=== PATIENT | female | born 1950 | race Two or more races ===

== ENCOUNTER 2017-12-06 10:31 | Outpatient (CLI) | payer OTHER ==
[~2017-12-06 10:31] MED LIST: CATAFLAM50 MG PO; GLIPIZIDE10 MG PO; JANUMET XR 1001 EACH; NEURONTIN250 MG/5 M PO; VYTORIN 10-20 M1 TAB PO
== END 2017-12-06 10:39 | disposition home or self-care (01) ==
LOC: LAB 10:31
DX: I10 Essential (primary) hypertension (principal); E11.8 Type 2 diabetes mellitus with unspecified complications; E03.8 Other specified hypothyroidism; E78.2 Mixed hyperlipidemia

== ENCOUNTER 2018-03-24 09:08 | Outpatient (CLI) | payer OTHER | END 2018-03-24 11:00 | disposition home or self-care (01) | LOC: LAB 09:08 | DX: I10 Essential (primary) hypertension (principal); E11.9 Type 2 diabetes mellitus without complications; E03.8 Other specified hypothyroidism; E78.2 Mixed hyperlipidemia ==

== ENCOUNTER 2018-04-05 10:55 | Outpatient (CLI) | payer OTHER | END 2018-04-05 14:52 | disposition home or self-care (01) | LOC: RAD 10:55 → SONOGRAMA 10:55 → RAD 14:52 | DX: M12.872 Other specific arthropathies, not elsewhere classified, left ankle and foot (principal); M19.072 Primary osteoarthritis, left ankle and foot ==

== ENCOUNTER 2018-07-15 09:23 | Outpatient (CLI) | payer OTHER | END 2018-07-15 09:30 | disposition home or self-care (01) | LOC: LAB 09:23 | DX: I10 Essential (primary) hypertension (principal); E11.9 Type 2 diabetes mellitus without complications; E03.8 Other specified hypothyroidism; E78.2 Mixed hyperlipidemia ==

== ENCOUNTER 2018-09-07 09:32 | Outpatient (CLI) | payer OTHER | END 2018-09-07 09:38 | disposition home or self-care (01) | LOC: LAB 09:32 | DX: E11.65 Type 2 diabetes mellitus with hyperglycemia (principal); E03.8 Other specified hypothyroidism; I10 Essential (primary) hypertension; E78.2 Mixed hyperlipidemia ==

== ENCOUNTER → 2018-10-14 | Outpatient (CLI) | payer OTHER | END | disposition home or self-care (01) | LOC: NUCLEAR 12:41 | DX: M81.0 Age-related osteoporosis without current pathological fracture (principal) ==

== ENCOUNTER 2018-11-04 08:48 | Outpatient (CLI) | payer OTHER | END 2018-11-04 15:00 | disposition home or self-care (01) | LOC: LAB 08:48 | DX: I10 Essential (primary) hypertension (principal); E11.9 Type 2 diabetes mellitus without complications; E03.8 Other specified hypothyroidism; E78.2 Mixed hyperlipidemia; K92.1 Melena; D64.89 Other specified anemias ==

== ENCOUNTER 2019-01-06 08:17 | Outpatient (CLI) | payer OTHER | END 2019-01-06 15:51 | disposition home or self-care (01) | LOC: MRI 08:17 | DX: M25.572 Pain in left ankle and joints of left foot (principal) | CPT/HCPCS: 73721 ==

== ENCOUNTER 2019-02-16 09:02 | Outpatient (CLI) | payer OTHER | END 2019-02-16 10:42 | disposition home or self-care (01) | LOC: LAB 09:02 | DX: E03.8 Other specified hypothyroidism (principal); E11.9 Type 2 diabetes mellitus without complications; E78.2 Mixed hyperlipidemia; Z12.11 Encounter for screening for malignant neoplasm of colon; I10 Essential (primary) hypertension ==

== ENCOUNTER 2019-03-06 08:04 | Outpatient (CLI) | payer OTHER | END 2019-03-06 08:32 | disposition home or self-care (01) | LOC: LAB 08:04 | DX: D64.89 Other specified anemias (principal); E88.89 Other specified metabolic disorders; D68.8 Other specified coagulation defects; N39.0 Urinary tract infection, site not specified; Z22.322 Carrier or suspected carrier of Methicillin resistant Staphylococcus aureus; Z76.89 Persons encountering health services in other specified circumstances; I49.8 Other specified cardiac arrhythmias ==

== ENCOUNTER 2019-03-13 09:54 | Outpatient (CLI) | payer OTHER | END 2019-03-13 09:56 | disposition home or self-care (01) | LOC: SONOGRAMA 09:54 | DX: C50.411 Malignant neoplasm of upper-outer quadrant of right female breast (principal); C50.612 Malignant neoplasm of axillary tail of left female breast; C50.412 Malignant neoplasm of upper-outer quadrant of left female breast; Z16.39 Resistance to other specified antimicrobial drug ==

== ENCOUNTER 2019-03-13 11:02 | Outpatient (CLI) | payer OTHER | END 2019-03-13 11:09 | disposition home or self-care (01) | LOC: LAB 11:02 | DX: C50.411 Malignant neoplasm of upper-outer quadrant of right female breast (principal); C50.612 Malignant neoplasm of axillary tail of left female breast; C50.412 Malignant neoplasm of upper-outer quadrant of left female breast ==

== ENCOUNTER 2019-04-17 08:03 | Outpatient (CLI) | payer OTHER | END 2019-04-17 08:13 | disposition home or self-care (01) | LOC: LAB 08:03 | DX: I49.8 Other specified cardiac arrhythmias (principal); Z76.89 Persons encountering health services in other specified circumstances; D64.89 Other specified anemias; E88.89 Other specified metabolic disorders; D68.8 Other specified coagulation defects; N39.0 Urinary tract infection, site not specified; Z22.322 Carrier or suspected carrier of Methicillin resistant Staphylococcus aureus ==

== ENCOUNTER 2019-05-08 05:15 | Day surgery (SDC) | payer OTHER ==
[~2019-05-08 05:15] MED LIST changes: +JANUMET XR 1001 EACH PO; -NEURONTIN250 MG/5 M PO; +NEURONTIN600 MG PO; +SIMVASTATIN40 MG PO; -VYTORIN 10-20 M1 TAB PO
== END 2019-05-08 14:20 | disposition home or self-care (01) ==
LOC: CIR.AMB 05:15
DX: M76.62 Achilles tendinitis, left leg (principal)

== ENCOUNTER → 2019-06-02 08:07 | Outpatient (CLI) | payer OTHER | END | disposition home or self-care (01) | LOC: LAB 08:07 | DX: I10 Essential (primary) hypertension (principal); E11.9 Type 2 diabetes mellitus without complications; E03.8 Other specified hypothyroidism; E78.2 Mixed hyperlipidemia ==

== ENCOUNTER → 2019-10-12 08:22 | Outpatient (CLI) | payer OTHER | END | disposition home or self-care (01) | LOC: LAB 08:22 | DX: E11.9 Type 2 diabetes mellitus without complications (principal); E03.8 Other specified hypothyroidism; E78.2 Mixed hyperlipidemia; I10 Essential (primary) hypertension ==

== ENCOUNTER 2020-03-21 08:18 | Outpatient (CLI) | payer OTHER | END 2020-03-21 08:22 | disposition home or self-care (01) | LOC: LAB 08:18 | PROVIDERS: ATTEND Internal Medicine Cardiovascular Disease | DX: E03.8 Other specified hypothyroidism (principal); I10 Essential (primary) hypertension; E78.2 Mixed hyperlipidemia; Z12.11 Encounter for screening for malignant neoplasm of colon; E11.9 Type 2 diabetes mellitus without complications ==

== ENCOUNTER → 2020-03-21 | Outpatient (CLI) | payer OTHER | END | disposition home or self-care (01) | LOC: RAD 09:06 | PROVIDERS: ATTEND Physical Medicine & Rehabilitation | DX: M54.6 Pain in thoracic spine (principal); M54.5 Low back pain ==

== ENCOUNTER 2020-03-26 08:09 | Outpatient (CLI) | payer OTHER | END 2020-03-26 08:13 | disposition home or self-care (01) | LOC: LAB 08:09 | PROVIDERS: ATTEND Internal Medicine Cardiovascular Disease | DX: I10 Essential (primary) hypertension (principal); E11.9 Type 2 diabetes mellitus without complications; E03.8 Other specified hypothyroidism; E78.2 Mixed hyperlipidemia; Z12.11 Encounter for screening for malignant neoplasm of colon ==

== ENCOUNTER → 2020-09-17 | Outpatient (CLI) | payer OTHER | END | disposition home or self-care (01) | LOC: RAD 09:12 | PROVIDERS: ATTEND Orthopaedic Surgery | DX: M76.52 Patellar tendinitis, left knee (principal); N20.1 Calculus of ureter ==

== ENCOUNTER 2020-10-18 08:52 | Outpatient (CLI) | payer OTHER | END 2020-10-18 09:12 | disposition home or self-care (01) | LOC: RAD 08:52 → MRI 09:15 | PROVIDERS: ATTEND Orthopaedic Surgery | DX: M17.11 Unilateral primary osteoarthritis, right knee (principal); M71.21 Synovial cyst of popliteal space [Baker], right knee | CPT/HCPCS: 73721 ==

== ENCOUNTER 2022-03-04 10:04 | Outpatient (CLI) | payer OTHER | END 2022-03-04 10:08 | disposition home or self-care (01) | LOC: LAB 10:04 | PROVIDERS: ATTEND Internal Medicine Hematology & Oncology | DX: D64.9 Anemia, unspecified (principal); C50.412 Malignant neoplasm of upper-outer quadrant of left female breast; R74.01 Elevation of levels of liver transaminase levels ==

== ENCOUNTER 2022-03-06 14:15 | Outpatient (CLI) | payer OTHER | END 2022-03-06 14:19 | disposition home or self-care (01) | LOC: SONOGRAMA 14:15 | PROVIDERS: ATTEND Internal Medicine Hematology & Oncology | DX: C50.412 Malignant neoplasm of upper-outer quadrant of left female breast (principal); C50.411 Malignant neoplasm of upper-outer quadrant of right female breast; Z85.3 Personal history of malignant neoplasm of breast; Z80.3 Family history of malignant neoplasm of breast; Z12.31 Encounter for screening mammogram for malignant neoplasm of breast ==

== ENCOUNTER 2022-11-30 09:33 | Outpatient (CLI) | payer OTHER | END 2022-11-30 09:35 | disposition home or self-care (01) | LOC: RAD 09:33 | PROVIDERS: ATTEND Internal Medicine Cardiovascular Disease | DX: M12.9 Arthropathy, unspecified (principal); M46.48 Discitis, unspecified, sacral and sacrococcygeal region ==

== ENCOUNTER → 2023-02-22 09:41 | Outpatient (CLI) | payer OTHER | END | disposition home or self-care (01) | LOC: LAB 09:41 | PROVIDERS: ATTEND Internal Medicine Hematology & Oncology | DX: D64.9 Anemia, unspecified (principal); E11.9 Type 2 diabetes mellitus without complications; I10 Essential (primary) hypertension; C50.412 Malignant neoplasm of upper-outer quadrant of left female breast; C50.411 Malignant neoplasm of upper-outer quadrant of right female breast; E78.5 Hyperlipidemia, unspecified ==

== ENCOUNTER 2023-02-22 10:56 | Outpatient (CLI) | payer OTHER | END 2023-02-22 11:00 | disposition home or self-care (01) | LOC: SONOGRAMA 10:56 | PROVIDERS: ATTEND Internal Medicine Hematology & Oncology | DX: Z12.31 Encounter for screening mammogram for malignant neoplasm of breast (principal); Z85.3 Personal history of malignant neoplasm of breast; Z90.11 Acquired absence of right breast and nipple; C50.411 Malignant neoplasm of upper-outer quadrant of right female breast; C50.412 Malignant neoplasm of upper-outer quadrant of left female breast ==

== ENCOUNTER 2023-08-02 12:47 | Outpatient (CLI) | payer OTHER | END 2023-08-02 12:48 | disposition home or self-care (01) | LOC: NUCLEAR 12:47 | PROVIDERS: ATTEND Orthopaedic Surgery | DX: M81.0 Age-related osteoporosis without current pathological fracture (principal) ==

== ENCOUNTER 2024-04-04 08:28 | Outpatient (CLI) | payer OTHER ==
[2024-04-04 09:06] LABS: HEMATOCRIT 32.3 % (36.0-45.00); HEMOGLOBIN 10.7 g/dL (12.0-15.00); MEAN CELL VOLUME 91.6 fL (80.00-100.00); MEAN CORPUSCULAR HEMOGLOBIN 30.4 pg (27.00-32.0); MEAN CORPUSCULAR HGB CONC 33.2 g/dl (32.0-36.0); PLATELET COUNT 218 K/uL (150-450); RED BLOOD COUNT 3.53 M/uL (4.00-6.00); RED CELL DISTRIBUTION WIDTH 13.6 % (11.5-14.5)
[2024-04-04 09:52] LABS: ALBUMIN 3.8 gm/dL (3.4-5.0); BILIRUBIN TOTAL 0.7 mg/dL (0.3-1.2); CALCIUM 9.2 mg/dL (8.5-10.1); CHOL HDL RATIO 2.3 (0-5.0); CREATININE SERUM 0.57 mg/dL (0.55-1.02); GFR 103.68; GLOBULINA 3.3 G/DL (2.4-3.5); POTASSIUM 4.07 mEq/L (3.5-5.1); TOTAL PROTEIN 7.1 gm/dL (6.4-8.2)
== END 2024-04-04 08:29 | disposition home or self-care (01) ==
LOC: LAB 08:28
PROVIDERS: ATTEND Internal Medicine Hematology & Oncology
DX: D64.9 Anemia, unspecified (principal); E74.01 von Gierke disease; E78.00 Pure hypercholesterolemia, unspecified; C50.411 Malignant neoplasm of upper-outer quadrant of right female breast; C50.412 Malignant neoplasm of upper-outer quadrant of left female breast

== ENCOUNTER 2024-04-04 08:57 | Outpatient (CLI) | payer OTHER | END 2024-04-04 09:04 | disposition home or self-care (01) | LOC: SONOGRAMA 08:57 | PROVIDERS: ATTEND Internal Medicine Hematology & Oncology | DX: C50.411 Malignant neoplasm of upper-outer quadrant of right female breast (principal); C50.412 Malignant neoplasm of upper-outer quadrant of left female breast; Z85.3 Personal history of malignant neoplasm of breast; Z90.13 Acquired absence of bilateral breasts and nipples ==

== ENCOUNTER 2024-06-23 08:31 | Outpatient (CLI) | payer OTHER ==
[2024-06-23 09:11] LABS: HEMATOCRIT 32.5 % (36.0-45.00); MEAN CELL VOLUME 91.4 fL (80.00-100.00); MEAN CORPUSCULAR HEMOGLOBIN 30.9 pg (27.00-32.0); MEAN CORPUSCULAR HGB CONC 33.9 g/dl (32.0-36.0); PLATELET COUNT 197 K/uL (150-450); RED BLOOD COUNT 3.56 M/uL (4.00-6.00); RED CELL DISTRIBUTION WIDTH 13.2 % (11.5-14.5)
[2024-06-23 09:59] LABS: ALBUMIN 3.7 gm/dL (3.4-5.0); BILIRUBIN TOTAL 0.5 mg/dL (0.3-1.2); CALCIUM 9.2 mg/dL (8.5-10.1); CREATININE SERUM 0.69 mg/dL (0.55-1.02); GFR 83.17; POTASSIUM 3.95 mEq/L (3.5-5.1); TOTAL PROTEIN 6.7 gm/dL (6.4-8.2)
== END 2024-06-23 08:40 | disposition home or self-care (01) ==
LOC: LAB 08:31
PROVIDERS: ATTEND Internal Medicine Gastroenterology
DX: K85.00 Idiopathic acute pancreatitis without necrosis or infection (principal); R10.10 Upper abdominal pain, unspecified; Z80.0 Family history of malignant neoplasm of digestive organs; E11.9 Type 2 diabetes mellitus without complications

== ENCOUNTER 2024-09-04 08:30 | Outpatient (CLI) | payer OTHER | END 2024-09-04 08:35 | disposition home or self-care (01) | LOC: RAD 08:30 | PROVIDERS: ATTEND Internal Medicine Cardiovascular Disease | DX: M46.47 Discitis, unspecified, lumbosacral region (principal) ==

== ENCOUNTER 2025-01-22 09:14 | Outpatient (CLI) | payer OTHER ==
[2025-01-22 11:32] LABS: HEMATOCRIT 34.3 % (36.0-45.00); HEMOGLOBIN 11.6 g/dL (12.0-15.00); MEAN CELL VOLUME 92.9 fL (80.00-100.00); MEAN CORPUSCULAR HEMOGLOBIN 31.4 pg (27.00-32.0); MEAN CORPUSCULAR HGB CONC 33.8 g/dl (32.0-36.0); PLATELET COUNT 177 K/uL (150-450); RED BLOOD COUNT 3.69 M/uL (4.00-6.00); RED CELL DISTRIBUTION WIDTH 12.7 % (11.5-14.5)
[2025-01-22 11:56] LABS: ALBUMIN 3.9 gm/dL (3.4-5.0); BILIRUBIN TOTAL 0.75 mg/dL (0.3-1.2); CALCIUM 9.3 mg/dL (8.5-10.1); CREATININE SERUM 0.6 mg/dL (0.55-1.02); GFR 97.46; GLOBULINA 2.9 G/DL (2.4-3.5); POTASSIUM 4.53 mEq/L (3.5-5.1); TOTAL PROTEIN 6.8 gm/dL (6.4-8.2)
== END 2025-01-22 09:21 | disposition home or self-care (01) ==
LOC: LAB 09:14
PROVIDERS: ATTEND Internal Medicine Hematology & Oncology
DX: D53.8 Other specified nutritional anemias (principal); R74.01 Elevation of levels of liver transaminase levels; C50.412 Malignant neoplasm of upper-outer quadrant of left female breast

== ENCOUNTER 2025-05-24 11:50 | Outpatient (CLI) | payer OTHER | END 2025-05-24 11:57 | disposition home or self-care (01) | LOC: MRI 11:50 | PROVIDERS: ATTEND Internal Medicine Cardiovascular Disease | DX: M46.47 Discitis, unspecified, lumbosacral region (principal) | CPT/HCPCS: 72148 ==

== ENCOUNTER 2025-07-19 10:47 | Outpatient (CLI) | payer OTHER | END 2025-07-19 10:53 | disposition home or self-care (01) | LOC: TOM 10:47 | PROVIDERS: ATTEND Internal Medicine Cardiovascular Disease | DX: R51.0 Headache with orthostatic component, not elsewhere classified (principal) ==